=== PATIENT | male | born 1940 | race Caucasian/White ===

== ENCOUNTER → 2017-11-06 07:14 | Outpatient (CLI) | payer MEDICARE, SELFPAY | PROVIDERS: PCP Nurse Practitioner Family; Visit Provider Physician Assistant | DX: R97.20 Elevated prostate specific antigen [PSA] (principal) | CPT/HCPCS: 36415; 84153 ==

== ENCOUNTER → 2018-06-14 12:33 | Outpatient (CLI) | payer MEDICARE, SELFPAY ==
[2018-06-14 13:09] LABS: BUN Creatinine Ratio 17.5 (6-22); Blood Urea Nitrogen 21 mg/dL (9-20); Carbon Dioxide 28 mmol/L (22-32); Chloride 103 mmol/L (98-107); Glucose 123 mg/dL (80-110); HEMOLYSIS < 15 (0-50); Potassium 4.6 mmol/L (3.4-5.1); Sodium 139 mmol/L (137-145)
--- NOTE | 2018-06-14 14:53 | DI.CT.S_ITS ---
PROCEDURE: CT ANGIO HEAD INDICATIONS: Right eye vision problems. Memory loss TECHNIQUE: Precontrast 4.5 mm thick angled axial sections acquired from the foramen magnum to the vertex. After the administration of intravenous contrast, 1 mm thick sections acquired through the [place]. Postcontrast 4.5 mm thick sections then re-acquired from the foramen magnum to the vertex. 10 mm thick bzjwibv-jnaihmfui-idxdikrhni (MIP) reformats were acquired of the central intracranial vasculature. For radiation dose reduction, the following was used: automated exposure control, adjustment of mA and/or kV according to patient size. COMPARISON: None. FINDINGS: Image quality: Excellent. The ventricular system and cortical sulci demonstrate atrophy, consistent for the patient's stated age. There are areas of hypodensity within the periventricular and subcortical white matter. There is no acute intra-or extra axial fluid collection. No acute hemorrhage, mass lesion or midline shift. Brainstem is unremarkable. Globes are symmetrical. The right maxillary sinus demonstrates complete occlusion by soft tissue density which extends into and expands the osteomeatal complex. Contiguous soft tissue density is noted extending into the right ethmoid air cells. Adjacent osseous structures demonstrate remodeling without evidence of gross bony destruction. Minimal scattered remaining sinus mucosal thickening is present. Osseous structures are intact. The posterior circulation demonstrates a left vertebral artery dominance. Basilar artery and posterior cerebral arteries demonstrate no areas of hemodynamically significant stenosis, vascular occlusion or aneurysmal dilation. Posterior communicating arteries are within normal limits. The anterior circulation, including the anterior and middle cerebral arteries, as well as internal carotid arteries demonstrates no areas of hemodynamically significant stenosis, vascular occlusion or aneurysmal dilation. 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 IMPRESSION: 1. No acute intracranial process. 2. Moderate atrophy and chronic microvascular ischemic changes. 3. No areas of hemodynamically significant stenosis, vascular occlusion or aneurysmal dilation within the anterior circulation. 4. No areas of hemodynamically significant stenosis, vascular occlusion or aneurysmal dilation within the posterior circulation. 5. Soft tissue density causing complete opacification of the right maxillary sinus with expansion of the ostiomeatal complex and extension into the right ethmoid air cells. While this could present chronic sinusitis, given presence of bony remodeling and absence of destruction. However underlying mass cannot be excluded. ENT consult is recommended. Dictated by: Sherine Voss M.D. on 06/14/2018 at 16:47 Approved by: Sherine Voss M.D. on 06/14/2018 at 16:59
== END ==
PROVIDERS: PCP Internal Medicine; Visit Provider Internal Medicine
DX: I63.9 Cerebral infarction, unspecified (principal); H53.9 Unspecified visual disturbance; R41.3 Other amnesia; I48.91 Unspecified atrial fibrillation
CPT/HCPCS: 36415; 70496; 80048; Q9967

== ENCOUNTER → 2018-08-27 09:29 | Outpatient (CLI) | payer MEDICARE, SELFPAY ==
--- NOTE | 2018-08-27 | DI.RAD.S_ITS ---
PROCEDURE: FL BARIUM SWALLOW INDICATIONS: Dysphagia, unspecified COMPARISON: None. FINDINGS: Function: Mild esophageal dysmotility. No elicited gastroesophageal reflux. Morphology: Air-contrast images demonstrate normal mucosal morphology. Single contrast views show no esophageal strictures, extrinsic mass effects, or diverticula. Limited images of the stomach demonstrate normal appearance. IMPRESSION: Mild esophageal dysmotility. Dictated by: Stiven Jose M.D. on 08/27/2018 at 12:15 Approved by: Stiven Jose M.D. on 08/27/2018 at 12:17
== END ==
PROVIDERS: PCP Internal Medicine; Visit Provider Internal Medicine
DX: R13.10 Dysphagia, unspecified (principal); K22.4 Dyskinesia of esophagus
CPT/HCPCS: 74220

== ENCOUNTER 2018-08-29 13:44 | Emergency (ER) | payer MEDICARE, SELFPAY ==
[2018-08-29] VITALS (7 sets, daily range): BP systolic 150–189; BP diastolic 90–115; PULSE 74–95; RESP 16–95; TEMP 36.9; O2SAT 96–100; BMI 28.2
--- NOTE | 2018-08-29 14:10 | ED_ITS ---
HPI - Chest Pain General Chief Complaint: Chest Pain Stated Complaint: thinks lose wire in his pace maker Time Seen by Provider: 08/29/18 13:50 Source: patient Mode of arrival: ambulatory Limitations: no limitations History of Present Illness HPI narrative: The patient is a 77-year-old male brought to the emergency department by his primary care provider personally. Patient has a history of chronic traumatic encephalopathy. He has extremely poor historian. He has been to his PCPs office every single day. Today he thinks that his ICD may have gone off. He felt some twinging. He actually has some difficulty swallowing at 1 point this week there was an outpatient barium swallow done which showed mild esophageal dysmotility. Patient appears comfortable. He has no complaints he denies any chest pain or heart palpitations. MD complaint: other Related Data Home Medications Medication Instructions Recorded Confirmed lisinopril 20 mg PO DAILY #0 tab 12/16/15 08/29/18 Allergy 1 tab PO DAILY PRN 08/29/18 08/29/18 aspirin 0.25 - 0.5 tab PO DAILY 08/29/18 08/29/18 atorvastatin 80 mg PO QPM 08/29/18 08/29/18 melatonin 3 mg PO BEDTIME PRN 08/29/18 08/29/18 minocycline 100 mg PO DAILY 08/29/18 08/29/18 saw palmetto 160 mg PO DAILY 08/29/18 08/29/18 tamsulosin 0.8 mg PO DAILY 08/29/18 08/29/18 Allergies Allergy/AdvReac Type Severity Reaction Status Date / Time codeine [CODEINE] Allergy Unknown Unverified 07/25/17 12:17 Review of Systems Review of Systems ROS Unobtainable: All systems reviewed & are unremarkable except as noted in HPI and below Constitutional Denies chills, Denies fever(s), Denies lethargy and Denies weakness Eyes Denies change in vision, Denies eye discharge, Denies irritation and Denies loss of vision Cardiovascular Reports as per HPI, Denies dyspnea and Denies dyspnea on exertion Respiratory Denies cough, Denies dyspnea, Denies dyspnea on exertion and Denies wheezing Gastrointestinal Gastrointestinal: Denies abdominal pain, Denies change in bowel habits, Denies diarrhea, Denies nausea and Denies vomiting Genitourinary Denies hematuria, Denies flank pain, Denies urinary incontinence and Denies urin alex urgency Musculoskeletal Denies back pain, Denies muscle weakness, Denies numbness and Denies tingling Integumentary/Breasts Denies pruritus, Denies erythema, Denies rash and Denies wounds Neurologic Denies loss of vision, Denies numbness, Denies tingling and Denies weakness Allergic/Immunologic Denies wheezing [facility] Medical History Atrial fibrillation (Acute) Encephalopathy (Acute) Hyperlipidemia (Acute) Social History Smoking Status: Former smoker Social History Smoking Status: Former smoker Exam Initial Vital Signs Initial Vital Signs: Vital Signs Temperature 98.4 F 08/29/18 13:45 Pulse Rate 95 H 08/29/18 13:45 Respiratory Rate 18 08/29/18 13:45 Blood Pressure 175/92 H 08/29/18 13:45 Pulse Oximetry 97 08/29/18 13:45 GENERAL: Alert pleasant elderly male and in [no acute] distress. HEENT: Head atraumatic,EOMI, pupils reactive, face symmetric, pacemaker noted left chest CARDIOVASCULAR: Regular rate and rhythm without murmurs, rubs or gallops. RESPIRATORY: Breath sounds equal bilaterally, no wheezes rales or rhonchi. ABDOMEN: Soft, nontender. Normoactive bowel sounds all 4 quadrants. No guarding or rebound. EXTREMITIES: Normal range of motion, no clubbing or edema. Neurovascularly intact NEUROLOGICAL: Alert and oriented x4.Normal gait and speech. Cranial nerves II through XII grossly intact. SKIN: Warm, dry, no laceration, no petechiae, no rashes or lesions. Course Orders Ordered: ED Orders 08/29/18 14:21 XR chest 1V Stat 08/29/18 14:23 Complete Blood Count AUTO DIFF Stat Comprehensive Metabolic Panel Stat Lipase Stat Troponin & CK Cardiac Panel Stat Vital Signs - 8 hr 08/29/18 13:45 08/29/18 14:39 08/29/18 15:30 Temperature 98.4 F Pulse Rate 95 H 93 H 74 Respiratory Rate 18 23 21 Blood Pressure 175/92 H Blood Pressure [Left Arm] 160/107 H 189/115 H Pulse Oximetry 97 96 97 05/16/19 16:00 08/29/18 17:15 08/29/18 18:04 Temperature Pulse Rate 90 85 92 H Respiratory Rate 95 H 21 16 Blood Pressure Blood Pressure [Left Arm] 171/115 H 162/91 H 150/90 H Pulse Oximetry 99 98 100 08/29/18 18:05 Temperature Pulse Rate 92 H Respiratory Rate 18 Blood Pressure 150/90 H Blood Pressure [Left Arm] Pulse Oximetry 99 MDM - Chest Pain Lab Data Attestation: I reviewed the patient's lab results. Result diagrams: 08/29/18 14:23 08/29/18 14:23 Lab Results 08/29/18 08/29/18 Range/Units 14:23 14:23 WBC 6.7 (4.5-11.0) X10^3/uL RBC 4.16 L (4.5-5.9) X10^6/uL Hgb 13.1 L (13.5-17.5) g/dL Hct 38.9 L (41-53) % MCV 93.4 (80-100) fL MCH 31.4 (26-34) PG MCHC 33.6 (30-36) % RDW 15.1 H (11.6-14.8) % Plt Count 267 (150-400) X10^3/uL Neut % (Auto) 77.4 H (50-75) % Lymph % (Auto) 13.4 L (25-40) % [place] % (Auto) 7.2 (3-14) % Eos % (Auto) 1.6 L (2-4) % Baso % (Auto) 0.4 (0-2) % Neut # (Auto) 5200 (8026-3573) /uL Lymph # (Auto) 900 L (5868-3544) /uL [place] # (Auto) 500 (0-900) /uL Eos # (Auto) 100 (0-450) /uL Baso # (Auto) 0 (0-100) /uL Sodium 137 (137-145) mmol/L Potassium 4.5 (3.4-5.1) mmol/L Chloride 105 (98-107) mmol/L Carbon Dioxide 23 (22-32) mmol/L BUN 25 H (9-20) mg/dL Creatinine 1.60 H (0.66-1.25) mg/dL Estimated GFR 42.3 L (>60) mL/min BUN/Creatinine Ratio 15.6 (6-22) Glucose 133 H (80-110) mg/dL Calcium 8.8 (8.4-10.2) mg/dL Total Bilirubin 0.6 (0.2-1.3) mg/dL AST 38 (17-59) IU/L ALT 43 (21-72) IU/L Alkaline Phosphatase 120 (38-126) U/L Total Creatine Kinase 241 H (55-170) U/L CK-MB (CK-2) 5.12 H (<2.37) ng/mL CK-MB (CK-2) Rel Index 2.1 (1.5-5.0) % Troponin I 0.015 (0.01-0.034) ng/mL Total Protein 6.6 (6.3-8.2) g/dL Albumin 3.9 (3.5-5.0) g/dL Globulin 2.7 (1.7-4.1) g/dL Albumin/Globulin Ratio 1.4 (1.0-2.8) Lipase 51 (23-300) U/L Urine Dip Bedside Urine Glucose Negative Bedside Urine Bilirubin - Negative Bedside Urine Ketone - Negative Urine Specific [place] 1.020 Bedside Urine Occult Blood - Negative Bedside Urine pH 6.0 Bedside Urine Protein - Negative Bedside Urine Urobilinogen +/- 1mg Bedside Urine Nitrite - Negative Bedside Urine Leukocytes - Negative Esterase Imaging Data Chest x-ray: Radiologist's impression: PROCEDURE: XR CHEST 1V INDICATIONS: chest pain TECHNIQUE: One view of the chest was acquired. COMPARISON: [facility], CHEST 2 VIEW, 06/08/2017, 9:46. FINDINGS: Surgical changes and devices: A left-sided cardiac pacer/defibrillator is present. Lungs and pleura: No focal consolidation, effusion, or pneumothorax is evident. Mediastinum: Mediastinal contours appear normal. Heart size is enlarged. There is aortic atherosclerosis. Bones and chest wall: No suspicious bony lesions. Prominent degenerative changes of the shoulders are not well characterized. They appear similar to the prior study. Overlying soft tissues appear unremarkable. IMPRESSION: Cardiomegaly without overt heart failure. No pneumonia. Dictated by: Donnie Castrejon M.D. on 08/29/2018 at 13:43 Approved by: Donnie Castrejon M.D. on 08/29/2018 at 13:44 ECG Data Attestation: I personally reviewed and interpreted this ECG as follows: Prior ECG tracings: available for review Interpretation: Paced rhythm rate 106 PVCs noted similar to previous EKG MDM Narrative Medical decision making narrative: [employer] ICD interrogated, I spoke with a operations representative. Stated that patient has been in AFib since May he did not have an ICD discharge today. Patient overall asymptomatic. Discharge Plan Departure Patient Disposition: Home Clinical Impression: Atypical chest pain Discharge Date/Time: 08/29/18 18:05 Interventions: ED Discharge Assessment Last Done: 08/29/18 18:05 Instructions: DI for Atypical Chest Pain Activity Restrictions/Additional Instructions: *You have been diagnosed with atypical chest *What to do: ICD did not go off. Episodes of atrial fibrillation. *Continue to take medications as directed *Follow up with your primary care provider in 2-3 days *Return to ER if you should have chest pain or any new, worsening or concerning symptoms Prescriptions: No Action lisinopril 20 MG tablet 20 mg PO DAILY Qty: 0 RF: 0 atorvastatin 80 mg tablet 80 mg PO QPM RF: 0 minocycline 100 mg capsule 100 mg PO DAILY RF: 0 tamsulosin 0.4 mg capsule 0.8 mg PO DAILY RF: 0 Allergy 1 tab PO DAILY PRN (Reason: Allergy Symptoms) RF: 0 aspirin 325 mg Tablet 0.25 - 0.5 tab PO DAILY RF: 0 melatonin 3 mg Tablet 3 mg PO BEDTIME PRN (Reason: Sleep) RF: 0 saw palmetto 160 mg Capsule 160 mg PO DAILY RF: 0 Referrals: Mina Lobato MD [Primary Care Provider] -
--- NOTE | 2018-08-29 14:21 | DI.RAD.S_ITS ---
PROCEDURE: XR CHEST 1V INDICATIONS: chest pain TECHNIQUE: One view of the chest was acquired. COMPARISON: [facility], , CHEST 2 VIEW, 06/08/2017, 9:46. FINDINGS: Surgical changes and devices: A left-sided cardiac pacer/defibrillator is present. Lungs and pleura: No focal consolidation, effusion, or pneumothorax is evident. Mediastinum: Mediastinal contours appear normal. Heart size is enlarged. There is aortic atherosclerosis. Bones and chest wall: No suspicious bony lesions. Prominent degenerative changes of the shoulders are not well characterized. They appear similar to the prior study. Overlying soft tissues appear unremarkable. IMPRESSION: Cardiomegaly without overt heart failure. No pneumonia. Dictated by: Donnie Castrejon M.D. on 08/29/2018 at 13:43 Approved by: Donnie Castrejon M.D. on 08/29/2018 at 13:44
[2018-08-29 14:32] LABS: Add Manual Diff / Slide Review NO; Basophils Absolute Auto 0 /uL (0-100); Basophils Percent Auto 0.4 % (0-2); Eosinophils Absolute Auto 100 /uL (0-450); Eosinophils Percent Auto 1.6 % (2-4); Hematocrit 38.9 % (41-53); Hemoglobin 13.1 g/dL (13.5-17.5); Lymphocytes Absolute Auto 900 /uL (1100-4500); Lymphocytes Percent Auto 13.4 % (25-40); Mean Corpuscular HGB Conc 33.6 % (30-36); Mean Corpuscular Hemoglobin 31.4 PG (26-34); Mean Corpuscular Volume 93.4 fL (80-100); Monocytes Absolute Auto 500 /uL (0-900); Monocytes Percent Auto 7.2 % (3-14); Neutrophils Absolute Auto 5200 /uL (1500-7000); Neutrophils Percent Auto 77.4 % (50-75); Platelet Count 267 X10^3/uL (150-400); Red Blood Cell Count 4.16 X10^6/uL (4.5-5.9); Red Cell Distribution Width 15.1 % (11.6-14.8); White Blood Cell Count 6.7 X10^3/uL (4.5-11.0)
[2018-08-29 14:44] LABS: Alanine Aminotransferase 43 IU/L (21-72); Albumin 3.9 g/dL (3.5-5.0); Albumin Globulin Ratio 1.4 (1.0-2.8); Alkaline Phosphatase 120 U/L (38-126); Aspartate Aminotransferase 38 IU/L (17-59); BUN Creatinine Ratio 15.6 (6-22); Bilirubin Total 0.6 mg/dL (0.2-1.3); Blood Urea Nitrogen 25 mg/dL (9-20); Calcium 8.8 mg/dL (8.4-10.2); Carbon Dioxide 23 mmol/L (22-32); Chloride 105 mmol/L (98-107); Creatine Kinase 241 U/L (55-170); Estimated Glomerular Filt Rate 42.3 mL/min (>60); Globulin 2.7 g/dL (1.7-4.1); Glucose 133 mg/dL (80-110); HEMOLYSIS 17 (0-50); Lipase 51 U/L (23-300); Potassium 4.5 mmol/L (3.4-5.1); Sodium 137 mmol/L (137-145); Total Protein 6.6 g/dL (6.3-8.2)
[2018-08-29 14:55] LABS: Troponin I 0.015 ng/mL (0.01-0.034)
[2018-08-29 15:00] LABS: CKMB % Relative Index 2.1 % (1.5-5.0); Creatine Kinase MB 5.12 ng/mL (<2.37)
--- NOTE | 2018-08-29 15:21 | PC.NURSE ---
pacemaker interrogated.
--- NOTE | 2018-08-29 16:25 | PC.NURSE ---
pt was moving toward the bottom of the bed to look and see if he had his wallet. pt's heart rate went up to 175. bp stable . pt spontaneously returned to heart rate of 93. paced with pvc. Dr. Johnson aware.
== END 2018-08-29 18:05 | disposition home or self-care (01) ==
PROVIDERS: Emergency Provider Emergency Medicine; PCP Internal Medicine
DX: R07.89 Other chest pain (principal); Z95.810 Presence of automatic (implantable) cardiac defibrillator
CPT/HCPCS: 36591; 71045; 80053; 81003; 82550; 82553; 83690; 84484; 85025; 93005; 93010; 99284; 99285

== ENCOUNTER 2019-04-20 09:53 | Emergency (ER) | payer MEDICARE, SELFPAY ==
--- NOTE | 2019-04-20 10:09 | ED.ABDPAIN ---
HPI - Abdominal Pain General Chief Complaint: Abdominal Pain Stated Complaint: possible hernia groin area left side Time Seen by Provider: 04/20/19 10:05 Source: patient Mode of arrival: Ambulatory Limitations: no limitations History of Present Illness HPI narrative: Patient is a 78-year-old male who presents with left inguinal hernia. He says it's been there for the last 3 months he is typically able to push it and this morning is little bit tender now testicle hurts a little as well. He denies any swelling of the testicle. He denies any nausea vomiting or bowel habit changes complaint: abdominal pain Onset (ago): hour(s) Pain Consistency: constant Location: LLQ Radiation: none Migration to: no migration Relieving factors: nothing Related Data Home Medications Medication Instructions Recorded Confirmed lisinopril 20 mg PO DAILY #0 tab 12/16/15 08/29/18 Allergy 1 tab PO DAILY PRN 08/29/18 08/29/18 aspirin 0.25 - 0.5 tab PO DAILY 08/29/18 08/29/18 atorvastatin 80 mg PO QPM 08/29/18 08/29/18 melatonin 3 mg PO BEDTIME PRN 08/29/18 08/29/18 minocycline 100 mg PO DAILY 08/29/18 08/29/18 saw palmetto 160 mg PO DAILY 08/29/18 08/29/18 tamsulosin 0.8 mg PO DAILY 08/29/18 08/29/18 Allergies Allergy/AdvReac Type Severity Reaction Status Date / Time codeine [CODEINE] Allergy Unknown Verified 04/20/19 10:11 Review of Systems Review of Systems Narrative: GENERAL: Denies chills, fatigue, malaise, fever, sweats, travel HEENT: Denies sinus pain, ear pain, sore throat, difficulty swallowing, neck pain RESPIRATORY: Denies dyspnea, cough, wheezing, hemoptysis, sputum. CARDIOVASCULAR: Denies chest pain, palpitations, orthopnea, edema GASTROINTESTINAL: Denies nausea, vomiting, abdominal pain, diarrhea, constipation, melena. : See HPI MUSCULOSKELETAL: Denies weakness, joint pain, or bony pain SKIN: No rash, no erythema, no pruritus NEUROLOGIC: Denies weakness, dizziness, headache, numbness, change in speech, confusion PSYCHIATRIC: No concerning psychosocial issues. 12 point review of systems is negative except for those stated above and HPI Patient History Social History Smoking Status: Former smoker Smoking Status: Former smoker alcohol intake frequency: 0-2 drinks per day Substance Use Type: does not use Exam Initial Vital Signs Initial Vital Signs: Vital Signs Temperature 97.1 F L 04/20/19 10:11 Pulse Rate 88 04/20/19 10:11 Respiratory Rate 15 04/20/19 10:11 Blood Pressure 185/100 H 04/20/19 10:11 Pulse Oximetry 98 04/20/19 10:11 GENERAL: Well-appearing, well-nourished and in no acute distress. HEENT: Head atraumatic,EOMI, pupils reactive CARDIOVASCULAR: Regular rate and rhythm without murmurs, rubs or gallops. RESPIRATORY: Breath sounds equal bilaterally, no wheezes rales or rhonchi. ABDOMEN: Soft, nontender. Normoactive bowel sounds all 4 quadrants. No guarding or rebound. Left inguinal bulge which is easily reducible : Left inguinal swelling minimal testicular pain and swelling on the left side but inguinal hernia is appreciated on the left right testicle is within normal limits EXTREMITIES: Normal range of motion, no clubbing or edema. Neurovascularly intact NEUROLOGICAL: Alert and oriented x4.Normal gait and speech. SKIN: Warm, dry, no laceration, no petechiae, no rashes or lesions. Course Vital Signs Vital signs: Vital Signs - 8 hr 04/20/19 10:11 Temperature 97.1 F L Pulse Rate 88 Respiratory Rate 15 Blood Pressure 185/100 H Pulse Oximetry 98 MDM - Abdominal Pain MDM Narrative Medical decision making narrative: The patient's left inguinal hernia is easily reducible, his pain immediately improved. At this time recommend follow-up outpatient with surgery for elective repair. I've also explained to him how to reduce it himself at home. Discharge Plan Departure Patient Disposition: Home Clinical Impression: Hernia, inguinal, left Discharge Date/Time: 04/20/19 10:33 Instructions: Groin Hernia -- Adult Activity Restrictions/Additional Instructions: *You have been diagnosed with left inguinal hernia *What to do: You will ultimately need surgery to repair this permanently. Try to lie flat and pushed bulging and when it comes out. *Continue to take medications as directed Tylenol 650 mg every 4-6 hours if needed for [id number] pain *Follow up with your primary care provider in 2-3 days You may need referral from her PCP to see surgery *Return to ER if you should have unable to push bulging in, increasing pain nausea vomiting abdominal pain or any new, worsening or concerning symptoms Prescriptions: No Action lisinopril 20 MG tablet 20 mg PO DAILY Qty: 0 RF: 0 atorvastatin 80 mg tablet 80 mg PO QPM RF: 0 minocycline 100 mg capsule 100 mg PO DAILY RF: 0 tamsulosin 0.4 mg capsule 0.8 mg PO DAILY RF: 0 Allergy 1 tab PO DAILY PRN (Reason: Allergy Symptoms) RF: 0 aspirin 325 mg Tablet 0.25 - 0.5 tab PO DAILY RF: 0 melatonin 3 mg Tablet 3 mg PO BEDTIME PRN (Reason: Sleep) RF: 0 saw palmetto 160 mg Capsule 160 mg PO DAILY RF: 0 Referrals: [facility] [Provider Group] Mina Lobato MD [Primary Care Provider] -
[2019-04-20 10:11] VITALS: BP 185/100; PULSE 88; RESP 15; TEMP 36.2; O2SAT 98; BMI 27.6
== END 2019-04-20 10:33 | disposition home or self-care (01) ==
PROVIDERS: Emergency Provider Emergency Medicine; PCP Internal Medicine
DX: K40.91 Unilateral inguinal hernia, without obstruction or gangrene, recurrent (principal)
CPT/HCPCS: 99281

== ENCOUNTER → 2019-05-05 09:44 | Outpatient (CLI) | payer MEDICARE, SELFPAY ==
--- NOTE | 2019-05-05 | DI.RAD.S_ITS ---
PROCEDURE: XR CHEST 2V INDICATIONS: COUGH TECHNIQUE: 2 views of the chest were acquired. COMPARISON: [facility], , XR CHEST 1V, 08/29/2018, 14:30. [facility], CR, CHEST 2 VIEW, 06/08/2017, 9:46. FINDINGS: Surgical changes and devices: Pacemaking device and dual chamber leads normal. Lungs and pleura: Lungs are clear. No pleural effusions or pneumothorax. Mediastinum: Mediastinal contours are normal. Heart size is normal. Bones and chest wall: No suspicious bony abnormalities. Soft tissues appear unremarkable. IMPRESSION: Pacemaking device and dual chamber leads are present, otherwise normal for age, source of current cough symptoms is not seen. Dictated by: Marcelino Goss M.D. on 05/05/2019 at 10:30 Approved by: Marcelino Goss M.D. on 05/05/2019 at 10:31
== END ==
PROVIDERS: PCP Internal Medicine; Visit Provider Internal Medicine
DX: R05 Cough (principal); Z95.0 Presence of cardiac pacemaker
CPT/HCPCS: 71046

== ENCOUNTER 2019-08-01 13:08 | Emergency (ER) | payer MEDICARE, SELFPAY ==
[2019-08-01 13:20] VITALS: BP 172/106; PULSE 80; RESP 14; TEMP 37; O2SAT 100; BMI 27.5
[2019-08-01 13:59] LABS: INR 1.1 (0.9-1.3); Prothrombin Time 12.8 SECONDS (10.1-12.7)
--- NOTE | 2019-08-01 13:59 | DI.CT.S_ITS ---
PROCEDURE: CT HEAD/BRAIN WO CON INDICATIONS: confusion TECHNIQUE: Noncontrast 4.5 mm thick angled axial sections acquired from the foramen magnum to the vertex, with coronal and sagittal reformats. For radiation dose reduction, the following was used: automated exposure control, adjustment of mA and/or kV according to patient size. COMPARISON: [facility], CT, CT ANGIO HEAD, 06/14/2018, 13:33. FINDINGS: Image quality: Excellent. CSF spaces: Basal cisterns are patent. No extra-axial fluid collections. The ventricles are symmetric in size and shape. Brain: No intracranial bleeds or masses. There is cerebral volume loss for age, with resultant ventricular and sulcal prominence. There are periventricular and deep white matter chronic small vessel ischemic changes. There is intracranial internal carotid artery atherosclerosis. Skull and face: Calvarium and visualized facial bones appear intact, without suspicious lesions. Sinuses: Visualized sinuses and mastoids are clear except for dense opacification of the right maxillary sinus, extending through the medial margin of the maxillary sinus and producing secondary right nasal airway stenosis.. IMPRESSION: Age related microvascular atherosclerotic change in the deep white matter of each hemisphere, without focal mass or identified stroke, or hemorrhage. Lobulated soft tissue thickening fills the right maxillary sinus, and extends into the right nasal airway as was previously the case 06/14/18. Chronic sinusitis is the presumed cause, but the finding is relatively prominent but without growth over time. Dictated by: Marcelino Goss M.D. on 08/01/2019 at 14:37 Approved by: Marcelino Goss M.D. on 08/01/2019 at 14:40
[2019-08-01 14:00] LABS: Ammonia (NH3) < 9 umol/L (9-30)
[2019-08-01 14:01] LABS: Add Manual Diff / Slide Review NO; Alanine Aminotransferase 28 IU/L (<50); Albumin 3.5 g/dL (3.5-5.0); Albumin Globulin Ratio 1.1 (1.0-2.8); Alkaline Phosphatase 159 U/L (38-126); Aspartate Aminotransferase 32 IU/L (17-59); BUN Creatinine Ratio 17.1 (6-22); Basophils Absolute Auto 100 /uL (0-100); Basophils Percent Auto 1.2 % (0-2); Bilirubin Total 0.4 mg/dL (0.2-1.3); Blood Urea Nitrogen 20 mg/dL (9-20); Calcium 8.9 mg/dL (8.4-10.2); Carbon Dioxide 23 mmol/L (22-32); Chloride 107 mmol/L (98-107); Eosinophils Absolute Auto 100 /uL (0-450); Eosinophils Percent Auto 1.2 % (2-4); Estimated Glomerular Filt Rate > 60.0 mL/min (>60); Globulin 3.1 g/dL (1.7-4.1); Glucose 157 mg/dL (80-110); HEMOLYSIS < 15 (0-50); Hematocrit 37.4 % (41-53); Lymphocytes Absolute Auto 500 /uL (1100-4500); Lymphocytes Percent Auto 7.2 % (25-40); Mean Corpuscular HGB Conc 34.7 % (30-36); Mean Corpuscular Hemoglobin 31.7 PG (26-34); Mean Corpuscular Volume 91.3 fL (80-100); Monocytes Absolute Auto 700 /uL (0-900); Neutrophils Absolute Auto 6200 /uL (1500-7000); Neutrophils Percent Auto 81.4 % (50-75); Platelet Count 335 X10^3/uL (150-400); Potassium 4.1 mmol/L (3.4-5.1); Red Cell Distribution Width 13.4 % (11.6-14.8); Sodium 138 mmol/L (137-145); Total Protein 6.6 g/dL (6.3-8.2); White Blood Cell Count 7.6 X10^3/uL (4.5-11.0)
[2019-08-01 14:02] LABS: PTT Partial Thromboplastin Tim 28 SECONDS (26.4-36.2)
[2019-08-01 14:42] LABS: Lactate (Lactic Acid) 0.8 mmol/L (0.7-2.1)
--- NOTE | 2019-08-01 14:43 | ED.AMS ---
HPI - Altered Mental Status <BINH Ennis - Last Filed: 08/02/19 00:08> General Chief Complaint: Urogenital-Male Stated Complaint: suspected UTI Time Seen by Provider: 08/01/19 13:14 Source: patient and family Mode of arrival: Ambulatory Limitations: no limitations History of Present Illness HPI narrative: This is a 78-year-old male, former smoker, who presents to ED with his daughter with chief complain of increased in confusion. Patient leaves in [facility] alone and the staff member/director has noticed increase in confusion. It was witnessed that patient had a urinary incontinence on Sunday and the patient is daughter, Yajaira, received a phone call that patient was found in [employer] parking lot. At this time patient had difficult time remembering where he lives and how he got to the place. Until now, patient has been managing his own finances and driving. Patient takes 2 medications, Metoprolol and Risperidone 1mg QHS. According to Dr. Lobato, about 2 weeks ago there was a complaining of patient being very loud at his place and had added new medication risperidone and discontinued several other medications. Patient has history of chronic traumatic encephalopathy, AFib, hypertension and has ICD inplaced. The patient is not currently taking anticoagulants. Patient reports he is feeling good and states he was traveling but felt confused. The daughter brought patient's pill packs that has been arranged daily and noticed patient had not taken several doses of his routine medications and has been taking sporadically. Related Data Home Medications Medication Instructions Recorded Confirmed metoprolol succinate 50 mg capsule 50 mg PO DAILY 05/07/19 05/07/19 sprinkle, ext. release 24 hr risperidone 1 mg PO DAILY 08/01/19 08/01/19 Allergies Allergy/AdvReac Type Severity Reaction Status Date / Time codeine [CODEINE] Allergy Unknown Verified 08/01/19 13:23 Review of Systems <BINH Ennis - Last Filed: 08/02/19 00:08> Review of Systems Narrative: General: Denies fever, chills, fatigue, malaise, sweats. HEENT: Denies sinus pain, ear pain, sore throat, difficulty swallowing, dizziness. Respiratory: Denies dyspnea, cough, wheezing, hemoptysis, sputum. Cardiovascular: Denies chest pain, palpitations, orthopnea, edema. Gastrointestinal: Denies nausea, vomiting, abdominal pain, diarrhea, constipation, melena. : Denies dysuria, frequency, incontinence, hematuria, urinary retention. Musculoskeletal: Denies weakness, joint pain or bony pain. Skin: Denies rash, skin lesions, or other. Neurologic: Denies weakness, headache, numbness, change in speech, (+) confusion, seizures, incoordination. Psychiatric: No concerning psychosocial issues. 12-point review of systems is negative except for those stated above. ROS Unobtainable: Unobtainable due to mental status/LOC Patient History <BINH Ennis - Last Filed: 08/02/19 00:08> Medical History Arthritis (Acute) Atrial fibrillation (Acute) Constipation (Acute) Encephalopathy (Acute) Enlarged prostate (Acute) Heart murmur (Acute) Hyperlipidemia (Acute) Myocardial infarction (Acute) Pneumonia (Acute) Psoriasis (Acute) Sinus drainage (Acute) Urinary incontinence (Acute) Surgical History AICD (automatic cardioverter/defibrillator) present (Acute) History of knee surgery (Acute ~1976) Status post laser cataract surgery of right eye (Acute) Social History household members: none housing: assisted living facility occupational status: previously employed Smoking Status: Former smoker alcohol intake: current substance use type: does not use Smoking Status: Former smoker alcohol intake frequency: 0-2 drinks per day Substance Use Type: does not use Exam <BINH Ennis - Last Filed: 08/02/19 00:08> Narrative Exam Narrative: GEN: Alert, oriented x 3, well appearing and nourished, and in no acute distress. Head: Normal cephalic, atraumatic. No scalp or temporal tenderness, palpable mass or rash. EYES: Pupils are equal, round, and reactive to light and accommodation. Extraocular muscles are intact bilaterally. There is no subconjunctival hemorrhage, exudate and sclera non-icteric. ENT: Hearing grossly intact. Nose without bleeding, purulent discharge. Mucous membrane moist, no mucosal lesion. Throat without erythema, tonsillar hypertrophy or exudate. Uvula in midline, airway patent. Neck: Trachea in midline. No JVD, non-tender without lymphadenopathy. No masses or thyroid megaly. Supple, non-tender and no meningeal signs. CARDIAC: Irregular rate and rhythm without murmurs, gallops, or rubs. No chest wall tenderness. No peripheral edema, cyanosis or pallor. Capillary refill is less than 2 seconds. No carotid bruits. RESPIRATORY: Lungs are cleat to auscultate bilaterally. No cough, wheezes, rales, or rhonchi. No stridor, respiratory distress, increase work of breathing, or accessary muscle used. ABD: Abdomen soft, nontender and non-distended. No guarding or rebound tenderness to palpate. Bowel sounds are normal in all 4 quadrants. There is no palpable masses or organomegaly. EXT: Full painless ROM of all extremities with no loss of sensation, strength, effusion or edema. SKIN: Warm, dry, normal color for patient. No erythema, lesions or rash. BACK: Nontender without deformity or crepitance. No flank tenderness. NEUROLOGICAL: Alert and oriented to place and person but not time. No facial droops, dysphasia. CN II-XII intact. Strength and sensation symmetric and intact throughout. Cerebellar testing normal. PSYCHIATRIC: No hallucinations, abnormal affect or abnormal behaviors during the examination. Patient is not suicidal. Initial Vital Signs Initial Vital Signs: Vital Signs Temperature 98.6 F 08/01/19 13:20 Pulse Rate 80 08/01/19 13:20 Respiratory Rate 14 08/01/19 13:20 Blood Pressure 172/106 H 08/01/19 13:20 Pulse Oximetry 100 08/01/19 13:20 Neuro General: gait normal, tone normal, moves all extremities and no focal motor deficits Cognition: abnormal cognition Speech: speech normal Psych Speech and Movement: speech and movement normal Affect: normal affect Attitude: cooperative Thought Process: loose association Thought Content: no delusions and no hallucinations Judgment: limited <Tomeka Pollock, DO - Last Filed: 08/02/19 07:23> Initial Vital Signs Initial Vital Signs: Vital Signs Temperature 98.6 F 08/01/19 13:20 Pulse Rate 80 08/01/19 13:20 Respiratory Rate 14 08/01/19 13:20 Blood Pressure 172/106 H 08/01/19 13:20 Pulse Oximetry 100 08/01/19 13:20 Scores <Jeremi JenkinsOUMARP - Last Filed: 08/02/19 00:08> GCS Zenia coma scale eye opening: Spontaneous Zenia coma scale verbal response: Confused Zenia coma scale motor response: Obey commands Dwight coma scale total score: 14 Course <Jeremi AliceOUMARP - Last Filed: 08/02/19 00:08> Orders Ordered: ED Orders 08/01/19 15:30 Consult to [facility] Route Rider Stat 08/01/19 16:02 Ictotest Urine Stat Urine Drug Screen, Rapid Stat Urine Microscopic Stat Vital Signs Vital signs: Vital Signs - 8 hr 08/01/19 17:17 Temperature 97.4 F L Pulse Rate 95 H Respiratory Rate 16 Blood Pressure 122/94 H Pulse Oximetry 98 <Tomeka Pollock DO - Last Filed: 08/02/19 07:23> Orders Ordered: ED Orders 08/01/19 15:[facility] 16[facility]02 Ictotest Urine Stat Urine Drug Screen, Rapid Stat Urine Microscopic Stat Vital Signs Vital signs: Vital Signs - 8 hr 08/01/19 17:17 Temperature 97.4 F L Pulse Rate 95 H Respiratory Rate 16 Blood Pressure 122/94 H Pulse Oximetry 98 MDM - Altered Mental Status <Jeremi Alice DAIRY WORKER - Last Filed: 08/02/19 00:08> Differential Diagnosis Differential diagnosis: Likely altered mental status, dementia and sepsis (UTI) Medical Records Attestation: I reviewed the patient's medical records. Lab Data Attestation: I reviewed the patient's lab results. Result diagrams: 08/01/19 13:37 08/01/19 13:37 Labs: Lab Results 08/01/19 08/01/19 08/01/19 Range/Units 13:37 13:37 13:37 WBC 7.6 (4.5-11.0) X10^3/uL RBC 4.10 L (4.5-5.9) X10^6/uL Hgb 13.0 L (13.5-17.5) g/dL Hct 37.4 L (41-53) % MCV 91.3 (80-100) fL MCH 31.7 (26-34) PG MCHC 34.7 (30-36) % RDW 13.4 (11.6-14.8) % Plt Count 335 (150-400) X10^3/uL Neut % (Auto) 81.4 H (50-75) % Lymph % (Auto) 7.2 L (25-40) % [place] % (Auto) 9.0 (3-14) % Eos % (Auto) 1.2 L (2-4) % Baso % (Auto) 1.2 (0-2) % Neut # (Auto) 6200 (8731-9749) /uL Lymph # (Auto) 500 L (4933-8671) /uL [place] # (Auto) 700 (0-900) /uL Eos # (Auto) 100 (0-450) /uL Baso # (Auto) 100 (0-100) /uL PT 12.8 H (10.1-12.7) SECONDS INR 1.1 (0.9-1.3) APTT 28 (26.4-36.2) SECONDS Sodium 138 (137-145) mmol/L Potassium 4.1 (3.4-5.1) mmol/L Chloride 107 (98-107) mmol/L Carbon Dioxide 23 (22-32) mmol/L BUN 20 (9-20) mg/dL Creatinine 1.17 (0.66-1.25) mg/dL Estimated GFR > 60.0 (>60) mL/min BUN/Creatinine Ratio 17.1 (6-22) Glucose 157 H (80-110) mg/dL Lactate (0.7-2.1) mmol/L Calcium 8.9 (8.4-10.2) mg/dL Total Bilirubin 0.4 (0.2-1.3) mg/dL AST 32 (17-59) IU/L ALT 28 (<50) IU/L Alkaline Phosphatase 159 H (38-126) U/L Ammonia (9-30) umol/L Total Protein 6.6 (6.3-8.2) g/dL Albumin 3.5 (3.5-5.0) g/dL Globulin 3.1 (1.7-4.1) g/dL Albumin/Globulin Ratio 1.1 (1.0-2.8) Procalcitonin (<0.5) ng/mL Ur Bilirubin Confirm (Negative) Urine RBC (0-5/HPF) Urine WBC (0-5/HPF) Ur Squamous Epith Cells (0-5/HPF) Urine Bacteria (None) Urine Mucus (Negative) Ur Culture Indicated? U Opiates 300ng/mL cut (Negative) Ur Oxycodone Screen (Negative) Urine Methadone Screen (Negative) Ur Barbiturates Screen (Negative) U Tricyclic Antidepress (Negative) Ur Phencyclidine Scrn (Negative) Ur Amphetamines Screen (Negative) U Methamphetamines Scrn (Negative) Ur MDMA Scrn (Ecstasy) (Negative) U Benzodiazepines Scrn (Negative) Urine Cocaine Screen (Negative) U Marijuana (THC) Screen (Negative) 08/01/19 08/01/19 08/01/19 Range/Units 13:37 13:37 14:10 WBC (4.5-11.0) X10^3/uL RBC (4.5-5.9) X10^6/uL Hgb (13.5-17.5) g/dL Hct (41-53) % MCV (80-100) fL MCH (26-34) PG MCHC (30-36) % RDW (11.6-14.8) % Plt Count (150-400) X10^3/uL Neut % (Auto) (50-75) % Lymph % (Auto) (25-40) % [place] % (Auto) (3-14) % Eos % (Auto) (2-4) % Baso % (Auto) (0-2) % Neut # (Auto) (0077-4329) /uL Lymph # (Auto) (6348-5509) /uL [place] # (Auto) (0-900) /uL Eos # (Auto) (0-450) /uL Baso # (Auto) (0-100) /uL PT (10.1-12.7) SECONDS INR (0.9-1.3) APTT (26.4-36.2) SECONDS Sodium (137-145) mmol/L Potassium (3.4-5.1) mmol/L Chloride (98-107) mmol/L Carbon Dioxide (22-32) mmol/L BUN (9-20) mg/dL Creatinine (0.66-1.25) mg/dL Estimated GFR (>60) mL/min BUN/Creatinine Ratio (6-22) Glucose (80-110) mg/dL Lactate 0.8 (0.7-2.1) mmol/L Calcium (8.4-10.2) mg/dL Total Bilirubin (0.2-1.3) mg/dL AST (17-59) IU/L ALT (<50) IU/L Alkaline Phosphatase (38-126) U/L Ammonia < 9 L (9-30) umol/L Total Protein (6.3-8.2) g/dL Albumin (3.5-5.0) g/dL Globulin (1.7-4.1) g/dL Albumin/Globulin Ratio (1.0-2.8) Procalcitonin 0.05 (<0.5) ng/mL Ur Bilirubin Confirm (Negative) Urine RBC (0-5/HPF) Urine WBC (0-5/HPF) Ur Squamous Epith Cells (0-5/HPF) Urine Bacteria (None) Urine Mucus (Negative) Ur Culture Indicated? U Opiates 300ng/mL cut (Negative) Ur Oxycodone Screen (Negative) Urine Methadone Screen (Negative) Ur Barbiturates Screen (Negative) U Tricyclic Antidepress (Negative) Ur Phencyclidine Scrn (Negative) Ur Amphetamines Screen (Negative) U Methamphetamines Scrn (Negative) Ur MDMA Scrn (Ecstasy) (Negative) U Benzodiazepines Scrn (Negative) Urine Cocaine Screen (Negative) U Marijuana (THC) Screen (Negative) 08/01/19 08/01/19 Range/Units 16:02 16:02 WBC (4.5-11.0) X10^3/uL RBC (4.5-5.9) X10^6/uL Hgb (13.5-17.5) g/dL Hct (41-53) % MCV (80-100) fL MCH (26-34) PG MCHC (30-36) % RDW (11.6-14.8) % Plt Count (150-400) X10^3/uL Neut % (Auto) (50-75) % Lymph % (Auto) (25-40) % [place] % (Auto) (3-14) % Eos % (Auto) (2-4) % Baso % (Auto) (0-2) % Neut # (Auto) (9551-7585) /uL Lymph # (Auto) (8320-8352) /uL [place] # (Auto) (0-900) /uL Eos # (Auto) (0-450) /uL Baso # (Auto) (0-100) /uL PT (10.1-12.7) SECONDS INR (0.9-1.3) APTT (26.4-36.2) SECONDS Sodium (137-145) mmol/L Potassium (3.4-5.1) mmol/L Chloride (98-107) mmol/L Carbon Dioxide (22-32) mmol/L BUN (9-20) mg/dL Creatinine (0.66-1.25) mg/dL Estimated GFR (>60) mL/min BUN/Creatinine Ratio (6-22) Glucose (80-110) mg/dL Lactate (0.7-2.1) mmol/L Calcium (8.4-10.2) mg/dL Total Bilirubin (0.2-1.3) mg/dL AST (17-59) IU/L ALT (<50) IU/L Alkaline Phosphatase (38-126) U/L Ammonia (9-30) umol/L Total Protein (6.3-8.2) g/dL Albumin (3.5-5.0) g/dL Globulin (1.7-4.1) g/dL Albumin/Globulin Ratio (1.0-2.8) Procalcitonin (<0.5) ng/mL Ur Bilirubin Confirm Negative (Negative) Urine RBC 1-5/hpf (0-5/HPF) Urine WBC 1-5/hpf (0-5/HPF) Ur Squamous Epith Cells 0-1 /hpf (0-5/HPF) Urine Bacteria Occasional (0-1) (None) Urine Mucus 1+ H (Negative) Ur Culture Indicated? Cult not indicated U Opiates 300ng/mL cut Negative (Negative) Ur Oxycodone Screen Negative (Negative) Urine Methadone Screen Negative (Negative) Ur Barbiturates Screen Negative (Negative) U Tricyclic Antidepress Negative (Negative) Ur Phencyclidine Scrn Negative (Negative) Ur Amphetamines Screen Negative (Negative) U Methamphetamines Scrn Negative (Negative) Ur MDMA Scrn (Ecstasy) Negative (Negative) U Benzodiazepines Scrn Negative (Negative) Urine Cocaine Screen Negative (Negative) U Marijuana (THC) Screen Negative (Negative) Urine Dip Bedside Urine Glucose Negative Bedside Urine Bilirubin + 1 Bedside Urine Ketone - Negative Urine Specific [place] 1.025 Bedside Urine Occult Blood - Negative Bedside Urine pH 6.0 Bedside Urine Protein +/- 15 Bedside Urine Urobilinogen - Negative Bedside Urine Nitrite - Negative Bedside Urine Leukocytes - Negative Esterase Imaging Data CT scan - head: Radiologist's Impression: [address] [address] [address] Scan Report Signed Patient: Axel Mead [facility]#: [id number] : 3Acct:[id number] Age/Sex: 78 / MDate of Service: 08/01/19 Loc: ED Accession Number: [id number] Procedure: CT head/brain wo con Ordering Provider: Jeremi Jenkins PROCEDURE: CT HEAD/BRAIN WO CON INDICATIONS: confusion TECHNIQUE: Noncontrast 4.5 mm thick angled axial sections acquired from the foramen magnum to the vertex, with coronal and sagittal reformats. For radiation dose reduction, the following was used: automated exposure control, adjustment of mA and/or kV according to patient size. COMPARISON: [facility], CT, CT ANGIO HEAD, 06/14/2018, 13:33. FINDINGS: Image quality: Excellent. CSF spaces: Basal cisterns are patent. No extra-axial fluid collections. The ventricles are symmetric in size and shape. Brain: No intracranial bleeds or masses. There is cerebral volume loss for age, with resultant ventricular and sulcal prominence. There are periventricular and deep white matter chronic small vessel ischemic changes. There is intracranial internal carotid artery atherosclerosis. Skull and face: Calvarium and visualized facial bones appear intact, without suspicious lesions. Sinuses: Visualized sinuses and mastoids are clear except for dense opacification of the right maxillary sinus, extending through the medial margin of the maxillary sinus and producing secondary right nasal airway stenosis.. IMPRESSION: Age related microvascular atherosclerotic change in the deep white matter of each hemisphere, without focal mass or identified stroke, or hemorrhage. Lobulated soft tissue thickening fills the right maxillary sinus, and extends into the right nasal airway as was previously the case 06/14/18. Chronic sinusitis is the presumed cause, but the finding is relatively prominent but without growth over time. Dictated by: Marcelino Goss M.D. on 08/01/2019 at 14:37 Approved by: Marcelino Goss M.D. on 08/01/2019 at 14:40 ECG Data Attestation: I personally reviewed and interpreted this ECG as follows: Prior ECG tracings: available for review Interpretation: Ventricular paced rhythm with occasional atrial paced complexes rate at 96. QRS duration 158, QT/QTC 410/517. Left [place] dominant. No ST elevation noted. Previous EKG shows supraventricular tachycardia with ST deviation and moderate T-wave abnormality. MDM Narrative Medical decision making narrative: This is a 78-year-old male who presents to ED with his daughter with increased confusion that has been witnessed by Eber Lindsey, [facility], staff and director. According to patient's PCP patient's mentation has been declining last 2-3 years (phone call). Patient has history of UTI in the past but no indication of urinary tract infection according to today's urine test. EKG shows paced rhythm rate and 90s. No leukocytosis today. Chemistry test is unremarkable except mildly elevated serum glucose of 157. Alkaline phosphatase 159 with mild elevation but no other liver function tests abnormalty and normal kidney function test. UDS test was negative. Normal ammonia result. Patient has been pleasantly confused and not oriented to time but cooperative and is able to follow verbal directions. Head CT test does not show such as intracranial bleeds or masses. It is indicated that age-related microvascular off for school medic changes in the deep white matter of each hemisphere. It shows again chronic sinusitis in right maxillary. It is likely patient has increased confusion is related to chronic traumatic encephalopathy or dementia. Since patient is not safe to leave alone, is recommended to stay with family or to seek higher level care such as assisted living who can manage patient's medication and care. Findings were discussed with patient's daughter, Yajaira, and it is reported that she is planning to find a placement for her dad at assisted living in [place] where she and the patient's spouse live at [facility]. I spoke with staff member Krys via phone call and provided patient's past medical history, surgical history, current medications and my physical exam and findings from today's visit. Will faxed information to [facility] as well for their records. <Tomeka Pollock, - Last Filed: 08/02/19 07:23> Lab Data Attestation: I reviewed the patient's lab results. Labs: Lab Results 08/01/19 08/01/19 08/01/19 Range/Units 13:37 13:37 13:37 WBC 7.6 (4.5-11.0) X10^3/uL RBC 4.10 L (4.5-5.9) X10^6/uL Hgb 13.0 L (13.5-17.5) g/dL Hct 37.4 L (41-53) % MCV 91.3 (80-100) fL MCH 31.7 (26-34) PG MCHC 34.7 (30-36) % RDW 13.4 (11.6-14.8) % Plt Count 335 (150-400) X10^3/uL Neut % (Auto) 81.4 H (50-75) % Lymph % (Auto) 7.2 L (25-40) % [place] % (Auto) 9.0 (3-14) % Eos % (Auto) 1.2 L (2-4) % Baso % (Auto) 1.2 (0-2) % Neut # (Auto) 6200 (9770-1784) /uL Lymph # (Auto) 500 L (8169-6325) /uL [place] # (Auto) 700 (0-900) /uL Eos # (Auto) 100 (0-450) /uL Baso # (Auto) 100 (0-100) /uL PT 12.8 H (10.1-12.7) SECONDS INR 1.1 (0.9-1.3) APTT 28 (26.4-36.2) SECONDS Sodium 138 (137-145) mmol/L Potassium 4.1 (3.4-5.1) mmol/L Chloride 107 (98-107) mmol/L Carbon Dioxide 23 (22-32) mmol/L BUN 20 (9-20) mg/dL Creatinine 1.17 (0.66-1.25) mg/dL Estimated GFR > 60.0 (>60) mL/min BUN/Creatinine Ratio 17.1 (6-22) Glucose 157 H (80-110) mg/dL Lactate (0.7-2.1) mmol/L Calcium 8.9 (8.4-10.2) mg/dL Total Bilirubin 0.4 (0.2-1.3) mg/dL AST 32 (17-59) IU/L ALT 28 (<50) IU/L Alkaline Phosphatase 159 H (38-126) U/L Ammonia (9-30) umol/L Total Protein 6.6 (6.3-8.2) g/dL Albumin 3.5 (3.5-5.0) g/dL Globulin 3.1 (1.7-4.1) g/dL Albumin/Globulin Ratio 1.1 (1.0-2.8) Procalcitonin (<0.5) ng/mL Ur Bilirubin Confirm (Negative) Urine RBC (0-5/HPF) Urine WBC (0-5/HPF) Ur Squamous Epith Cells (0-5/HPF) Urine Bacteria (None) Urine Mucus (Negative) Ur Culture Indicated? U Opiates 300ng/mL cut (Negative) Ur Oxycodone Screen (Negative) Urine Methadone Screen (Negative) Ur Barbiturates Screen (Negative) U Tricyclic Antidepress (Negative) Ur Phencyclidine Scrn (Negative) Ur Amphetamines Screen (Negative) U Methamphetamines Scrn (Negative) Ur MDMA Scrn (Ecstasy) (Negative) U Benzodiazepines Scrn (Negative) Urine Cocaine Screen (Negative) U Marijuana (THC) Screen (Negative) 08/01/19 08/01/19 08/01/19 Range/Units 13:37 13:37 14:10 WBC (4.5-11.0) X10^3/uL RBC (4.5-5.9) X10^6/uL Hgb (13.5-17.5) g/dL Hct (41-53) % MCV (80-100) fL MCH (26-34) PG MCHC (30-36) % RDW (11.6-14.8) % Plt Count (150-400) X10^3/uL Neut % (Auto) (50-75) % Lymph % (Auto) (25-40) % [place] % (Auto) (3-14) % Eos % (Auto) (2-4) % Baso % (Auto) (0-2) % Neut # (Auto) (3775-4588) /uL Lymph # (Auto) (5531-2395) /uL [place] # (Auto) (0-900) /uL Eos # (Auto) (0-450) /uL Baso # (Auto) (0-100) /uL PT (10.1-12.7) SECONDS INR (0.9-1.3) APTT (26.4-36.2) SECONDS Sodium (137-145) mmol/L Potassium (3.4-5.1) mmol/L Chloride (98-107) mmol/L Carbon Dioxide (22-32) mmol/L BUN (9-20) mg/dL Creatinine (0.66-1.25) mg/dL Estimated GFR (>60) mL/min BUN/Creatinine Ratio (6-22) Glucose (80-110) mg/dL Lactate 0.8 (0.7-2.1) mmol/L Calcium (8.4-10.2) mg/dL Total Bilirubin (0.2-1.3) mg/dL AST (17-59) IU/L ALT (<50) IU/L Alkaline Phosphatase (38-126) U/L Ammonia < 9 L (9-30) umol/L Total Protein (6.3-8.2) g/dL Albumin (3.5-5.0) g/dL Globulin (1.7-4.1) g/dL Albumin/Globulin Ratio (1.0-2.8) Procalcitonin 0.05 (<0.5) ng/mL Ur Bilirubin Confirm (Negative) Urine RBC (0-5/HPF) Urine WBC (0-5/HPF) Ur Squamous Epith Cells (0-5/HPF) Urine Bacteria (None) Urine Mucus (Negative) Ur Culture Indicated? U Opiates 300ng/mL cut (Negative) Ur Oxycodone Screen (Negative) Urine Methadone Screen (Negative) Ur Barbiturates Screen (Negative) U Tricyclic Antidepress (Negative) Ur Phencyclidine Scrn (Negative) Ur Amphetamines Screen (Negative) U Methamphetamines Scrn (Negative) Ur MDMA Scrn (Ecstasy) (Negative) U Benzodiazepines Scrn (Negative) Urine Cocaine Screen (Negative) U Marijuana (THC) Screen (Negative) 08/01/19 08/01/19 Range/Units 16:02 16:02 WBC (4.5-11.0) X10^3/uL RBC (4.5-5.9) X10^6/uL Hgb (13.5-17.5) g/dL Hct (41-53) % MCV (80-100) fL MCH (26-34) PG MCHC (30-36) % RDW (11.6-14.8) % Plt Count (150-400) X10^3/uL Neut % (Auto) (50-75) % Lymph % (Auto) (25-40) % [place] % (Auto) (3-14) % Eos % (Auto) (2-4) % Baso % (Auto) (0-2) % Neut # (Auto) (6983-7661) /uL Lymph # (Auto) (5046-7841) /uL [place] # (Auto) (0-900) /uL Eos # (Auto) (0-450) /uL Baso # (Auto) (0-100) /uL PT (10.1-12.7) SECONDS INR (0.9-1.3) APTT (26.4-36.2) SECONDS Sodium (137-145) mmol/L Potassium (3.4-5.1) mmol/L Chloride (98-107) mmol/L Carbon Dioxide (22-32) mmol/L BUN (9-20) mg/dL Creatinine (0.66-1.25) mg/dL Estimated GFR (>60) mL/min BUN/Creatinine Ratio (6-22) Glucose (80-110) mg/dL Lactate (0.7-2.1) mmol/L Calcium (8.4-10.2) mg/dL Total Bilirubin (0.2-1.3) mg/dL AST (17-59) IU/L ALT (<50) IU/L Alkaline Phosphatase (38-126) U/L Ammonia (9-30) umol/L Total Protein (6.3-8.2) g/dL Albumin (3.5-5.0) g/dL Globulin (1.7-4.1) g/dL Albumin/Globulin Ratio (1.0-2.8) Procalcitonin (<0.5) ng/mL Ur Bilirubin Confirm Negative (Negative) Urine RBC 1-5/hpf (0-5/HPF) Urine WBC 1-5/hpf (0-5/HPF) Ur Squamous Epith Cells 0-1 /hpf (0-5/HPF) Urine Bacteria Occasional (0-1) (None) Urine Mucus 1+ H (Negative) Ur Culture Indicated? Cult not indicated U Opiates 300ng/mL cut Negative (Negative) Ur Oxycodone Screen Negative (Negative) Urine Methadone Screen Negative (Negative) Ur Barbiturates Screen Negative (Negative) U Tricyclic Antidepress Negative (Negative) Ur Phencyclidine Scrn Negative (Negative) Ur Amphetamines Screen Negative (Negative) U Methamphetamines Scrn Negative (Negative) Ur MDMA Scrn (Ecstasy) Negative (Negative) U Benzodiazepines Scrn Negative (Negative) Urine Cocaine Screen Negative (Negative) U Marijuana (THC) Screen Negative (Negative) Urine Dip Bedside Urine Glucose Negative Bedside Urine Bilirubin + 1 Bedside Urine Ketone - Negative Urine Specific [place] 1.025 Bedside Urine Occult Blood - Negative Bedside Urine pH 6.0 Bedside Urine Protein +/- 15 Bedside Urine Urobilinogen - Negative Bedside Urine Nitrite - Negative Bedside Urine Leukocytes - Negative Esterase MDM Narrative Medical decision making narrative: Case discussed at length. No organic cause noted for patients symptoms. Case also discussed with patients primary care. Daughter is in process of getting patient placed at and assisted living facility and will likely have placement today or tomorrow. Facility asked that we fax information to facilitate acceptance. Discharge Plan Departure Patient Disposition: Home Clinical Impression: Confusion Dementia Qualifiers: Dementia type: unspecified type Dementia behavioral disturbance: without behavioral disturbance Qualified Code(s): F03.90 - Unspecified dementia without behavioral disturbance Discharge Date/Time: 08/01/19 17:17 Activity Restrictions/Additional Instructions: You have been diagnosed with [confusion and likely due to progressing dementia]. What to do: *Take your medications as directed. No new medications to go home with. *Follow up with your primary care provider in 2-3 days, call for an appointment. Let them know you were seen in the ED and that we asked you to be seen in follow up. We will be referring patient to [facility] as Yajaira is arranging the admission in [place] for care. *Return to ED if you have any new, worsening, or concerning symptoms, such as [chest pain, breathing difficulty, unable to tolerate fluids, fever, or any acute concerns]. Prescriptions: No Action metoprolol succinate 50 mg capsule,sprinkle,ER 24hr 50 mg PO DAILY RF: 0 risperidone 1 mg tablet 1 mg PO DAILY RF: 0 Referrals: Mina Lobato MD [Primary Care Provider] -
--- NOTE | 2019-08-01 14:56 | PC.NURSE ---
assisted patient up to bedside to try urinating in urinal. Unable to produce urine, Encouraged PO intake
[2019-08-01 15:02] LABS: Procalcitonin 0.05 ng/mL (<0.5)
[2019-08-01 15:30] VITALS: BP 141/90; PULSE 88; RESP 16; TEMP 36.6; O2SAT 99
[2019-08-01 16:12] LABS: Ictotest Urine Negative (Negative)
[2019-08-01 16:15] LABS: RBC Urine 1-5/HPF (0-5/HPF); Squamous Epithelial Cell Urine 0-1 /HPF (0-5/HPF); WBC Urine 1-5/HPF (0-5/HPF)
[2019-08-01 16:16] LABS: Bacteria Urine Occasional (0-1); Culture Indicated Urine Cult Not Indicated; Mucus Urine 1+ (Negative); UR Morphine/Opiate cutoff 300 Negative (Negative); Ur Creatinine Normal (Normal); Ur Specific Gravity Normal (Normal); Urine Amphetamines Negative (Negative); Urine Barbiturates Negative (Negative); Urine Benzodiazepines Negative (Negative); Urine Cocaine Negative (Negative); Urine MDMA Negative (Negative); Urine Methadone Negative (Negative); Urine Methamphetamines Negative (Negative); Urine Oxycodone Negative (Negative); Urine Phencyclidine Negative (Negative); Urine Tetrahydrocannabinol Negative (Negative); Urine Tricyclic Antidepressant Negative (Negative); Urine pH Normal (Normal)
[2019-08-01 17:17] VITALS: BP 122/94; PULSE 95; RESP 16; TEMP 36.3; O2SAT 98
== END 2019-08-01 17:17 | disposition home or self-care (01) ==
PROVIDERS: Emergency Provider Nurse Practitioner Family; PCP Internal Medicine
DX: R41.0 Disorientation, unspecified (principal); F03.90 Unspecified dementia, unspecified severity, without behavioral disturbance, psychotic disturbance, mood disturbance, and anxiety; I47.1 Supraventricular tachycardia; I48.91 Unspecified atrial fibrillation; I10 Essential (primary) hypertension
CPT/HCPCS: 36415; 70450; 80053; 80305; 81003; 81015; 82140; 83605; 84145; 85025; 85610; 85730; 93005; 99284